=== PATIENT | female | born 1995 | race American Indian/Alaskan Native ===

== ENCOUNTER 2019-12-26 20:46 | Emergency (ER) | payer SELFPAY ==
[2019-12-26] MEDS ORDERED: IBUPROFEN 600 MG TAB PO ONE (22:00)
[2019-12-26] MEDS ORDERED: DIBUCAINE 1% OINT 28 GM PR ONE (22:00)
--- NOTE | 2019-12-26 23:00 | Emergency Department Report ---
ED General Adult HPI - General Chief complaint: Rectal Pain Stated complaint: LAURA/HEMORRHOIDS Source: patient Mode of arrival: Ambulatory Limitations: No Limitations - History of Present Illness Initial comments: Patient is a nulliparous 24-year-old -[place] female with no past medical history who presents to the ED with acute onset persistent severe rectal pain due to hemorrhoids for the last 2 days. Patient states that she has been using [id number] medication with no relief. Patient also complains of rectal pain from the hemorrhoid that has been bleeding intermittently. Patient denies lightheadedness, dizziness, chest pain, shortness of breath, abdominal pain, nausea, vomiting, diarrhea, fever, chills, dysuria, urinary frequency and urgency or change in vision and syncope. MD Complaint: rectal pain; hemorrhoid pain -: Sudden, days(s) (2) Location: buttocks (rectal) Radiation: non-radiation Severity scale (0 -10): 8 Quality: burning, aching, sharp Consistency: constant Improves with: none Worsens with: movement Associated Symptoms: denies other symptoms. denies: confusion, chest pain, cough, diaphoresis, headaches, loss of appetite, malaise, nausea/vomiting, rash, seizure, shortness of breath, syncope, weakness Treatments Prior to Arrival: none - Related Data Previous Rx's Medication Instructions Recorded Last Taken Type Pantoprazole [Protonix TAB] 20 mg PO QDAY #30 tablet. 10/02/15 Unknown Rx Sulfamethoxazole/Trimethoprim 1 each PO BID #14 tablet 10/02/15 Unknown Rx [Bactrim DS TAB] traMADoL [Ultram] 50 mg PO Q6HR PRN #20 tablet 10/02/15 Unknown Rx Dibucaine [Hemorrhoidal-Analgesic] 1 applic TP Q6H PRN #1 tube 12/26/19 Unknown Rx Hydrocortisone [Anusol-Hc 2.5% TOP 1 applic RC Q8H PRN #1 tube 12/26/19 Unknown Rx CREAM] Ibuprofen [Motrin] 600 mg PO Q8H PRN #30 tablet 12/26/19 Unknown Rx Sennosides/Docusate Sodium 1 each PO DAILY #30 tablet 12/26/19 Unknown Rx [Docusate Sodium-Senna Tablet] Allergies Allergy/AdvReac Type Severity Reaction Status Date / Time No Known Allergies Allergy Unverified 07/05/13 13:48 ED Review of Systems ROS: Stated complaint: LAURA/HEMORRHOIDS Other details as noted in HPI Constitutional: denies: chills, fever Eyes: denies: eye pain, eye discharge, vision change ENT: denies: ear pain, throat pain Respiratory: denies: cough, shortness of breath, wheezing Cardiovascular: denies: chest pain, palpitations Endocrine: no symptoms reported Gastrointestinal: other (rectal pain due to hemorrhoids). denies: abdominal pain, nausea, diarrhea Genitourinary: denies: urgency, dysuria, discharge Musculoskeletal: denies: back pain, joint swelling, arthralgia Skin: denies: rash, lesions Neurological: denies: headache, weakness, paresthesias Psychiatric: denies: anxiety, depression Hematological/Lymphatic: denies: easy bleeding, easy bruising ED Past Medical Hx - Past Medical History Previous Medical History?: Yes Additional medical history: Hemorrhoids - Surgical History Past Surgical History?: No - Social History Smoking Status: Never Smoker Substance Use Type: None - Medications Home Medications: Home Medications Medication Instructions Recorded Confirmed Last Taken Type Pantoprazole [Protonix TAB] 20 mg PO QDAY #30 tablet. 10/02/15 Unknown Rx Sulfamethoxazole/Trimethoprim 1 each PO BID #14 tablet 10/02/15 Unknown Rx [Bactrim DS TAB] traMADoL [Ultram] 50 mg PO Q6HR PRN #20 tablet 10/02/15 Unknown Rx Dibucaine [Hemorrhoidal-Analgesic] 1 applic TP Q6H PRN #1 tube 12/26/19 Unknown Rx Hydrocortisone [Anusol-Hc 2.5% TOP 1 applic RC Q8H PRN #1 tube 12/26/19 Unknown Rx CREAM] Ibuprofen [Motrin] 600 mg PO Q8H PRN #30 tablet 12/26/19 Unknown Rx Sennosides/Docusate Sodium 1 each PO DAILY #30 tablet 12/26/19 Unknown Rx [Docusate Sodium-Senna Tablet] ED Physical Exam - General Limitations: No Limitations General appearance: alert, in no apparent distress - Head Head exam: Present: atraumatic, normocephalic, normal inspection - Eye Eye exam: Present: normal appearance, PERRL, EOMI Pupils: Present: normal accommodation - ENT ENT exam: Present: normal exam, normal orophraynx, mucous membranes moist, TM's normal bilaterally, normal external ear exam - Neck Neck exam: Present: normal inspection, full ROM - Respiratory Respiratory exam: Present: normal lung sounds bilaterally. Absent: respiratory distress, wheezes, rales, stridor, chest wall tenderness - Cardiovascular Cardiovascular Exam: Present: regular rate, normal rhythm, normal heart sounds. Absent: systolic murmur, diastolic murmur, rubs, gallop - GI/Abdominal GI/Abdominal exam: Present: soft, normal bowel sounds. 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 Sanchez present during the rectal exam) - Extremities Exam Extremities exam: Present: normal inspection, full ROM, normal capillary refill - Back Exam Back exam: Present: normal inspection, full ROM. Absent: tenderness, muscle spasm, paraspinal tenderness - Neurological Exam Neurological exam: Present: alert, oriented X3, CN II-XII intact, normal gait, reflexes normal - Psychiatric Psychiatric exam: Present: normal affect, normal mood - Skin Skin exam: Present: warm, dry, intact, normal color. Absent: rash ED Course Vital Signs 12/26/19 21:18 Temperature 98.5 F Pulse Rate 61 Respiratory 18 Rate Blood Pressure 103/68 O2 Sat by Pulse 100 Oximetry ED Medical Decision Making - Medical Decision Making This is a nulliparous 24-year-old -[place] female with no past medical history who presents to the ED with acute onset persistent severe rectal pain due to hemorrhoids for the last 2 days. Patient states that she has been using [id number] medication with no relief. Patient also complains of rectal pain from the hemorrhoid that has been bleeding intermittently. In the ED, patient is alert and oriented x3 and is not in distress but appears uncomfortable. Rectal exam shows large quarter sized external tender hemorrhoid with no bleeding. Patient was treated in the ED for pain with ibuprofen and dibucaine 1% ointment. On reevaluation, patient's pain is well controlled medications. Patient will discharge home on medication and advised to follow-up with her primary care physician in 7 to 10 days for reevaluation. Patient was advised to consider surgical removal of the hemorrhoids if they get worse and therefore patient was given a referral to the general surgeon on-call Dr. Kim for further evaluation and follow-up. Patient was advised to return to the ED immediately if symptoms get worse. - Differential Diagnosis Hemorrhoids; Rectal prolapse; Genital herpes; constipation; fissures Critical care attestation.: If time is entered above; I have spent that time in minutes in the direct care of this critically ill patient, excluding procedure time. ED Disposition Clinical Impression: External hemorrhoids, Anal or rectal pain Disposition: TO HOME OR SELFCARE Is pt being admited?: No Does the pt Need Aspirin: No Condition: Stable Instructions: Hemorrhoids (ED), Hemorrhoidectomy (ED) Additional Instructions: Apply the medications to the affected area as advised. Take pain medication by mouth as needed. Increase your fiber intake as well as water intake to improve on your bowel habits. Return to the ED immediately if symptoms get worse. Otherwise follow-up with the general surgeon on-call Dr. Kim as advised. Prescriptions: Hydrocortisone [Anusol-Hc 2.5% TOP CREAM] 1 applic RC Q8H PRN #1 tube PRN Reason: Hemorrhoids Sennosides/Docusate Sodium [Docusate Sodium-Senna Tablet] 1 each PO DAILY #30 tablet Dibucaine [Hemorrhoidal-Analgesic] 1 applic TP Q6H PRN #1 tube PRN Reason: Pain , Severe (7-10) Ibuprofen [Motrin] 600 mg PO Q8H PRN #30 tablet PRN Reason: Pain Referrals: SYLVESTER KIM MD [Staff Physician] - 3-5 Days Time of Disposition: 23:02 Print Language: SALVADOREAN
[2019-12-26 23:11] VITALS: BP 106/72
== END 2019-12-26 23:22 | disposition home or self-care (01) ==
LOC: ED 20:46
DX: K64.4 Residual hemorrhoidal skin tags (principal); Z79.899 Other long term (current) drug therapy
CPT/HCPCS: 99283

== ENCOUNTER 2022-04-14 00:36 | Emergency (ER) | payer SELFPAY ==
--- NOTE | 2022-04-14 01:21 | Emergency Department Report ---
ED General Adult HPI - General Chief complaint: Vaginal Bleeding Stated complaint: VAGINAL BLEEDING/ABD PAIN Time Seen by Provider: 04/14/22 01:15 Source: patient, EMS Mode of arrival: Stretcher Limitations: No Limitations - History of Present Illness Initial comments: 23-year-old female who is approximately 14 weeks presents to the emergency department with vaginal bleeding. Patient reports has been bleeding every day since 1 week ago, however the bleeding has gotten really heavy today. She does go to [facility] in which she did see them today as well had a pelvic exam done and has a scheduled ultrasound on Saturday. States the bleeding has been very heavy, with clots, and pain in her pelvic region. She approximates she is 14 weeks , her last menstrual period was sometime in January and she is due November 2021. Patient approximate she is about 8 weeks , She is a 1, para 0, miscarriage 0, AB 0, she goes to the [facility] for - Related Data Previous Rx's Medication Instructions Recorded Last Taken Type Ibuprofen [Motrin] 600 mg PO Q8H PRN #30 tablet 12/26/19 Unknown Rx Sennosides/Docusate Sodium 1 each PO DAILY #30 tablet 12/26/19 Unknown Rx [Docusate Sodium-Senna Tablet] Acetaminophen/Codeine [Tylenol 1 tab PO Q6H PRN #12 tab 04/14/22 Unknown Rx /Codeine # 3 tab] Allergies Allergy/AdvReac Type Severity Reaction Status Date / Time No Known Allergies Allergy Verified 01/11/20 16:00 ED Review of Systems ROS: Stated complaint: VAGINAL BLEEDING/ABD PAIN Other details as noted in HPI Constitutional: see HPI ENT: as per HPI Respiratory: see HPI Cardiovascular: denies: chest pain, palpitations Endocrine: denies: excessive sweating, intolerance to cold, intolerance to heat Gastrointestinal: as per HPI. denies: abdominal pain Genitourinary: as per HPI, hematuria, discharge Musculoskeletal: as per HPI Neurological: denies: headache Psychiatric: denies: auditory hallucinations, visual hallucinations, homicidal thoughts, suicidal thoughts Hematological/Lymphatic: denies: easy bleeding, easy bruising ED Past Medical Hx - Past Medical History Previous Medical History?: Yes Hx Hypertension: No Hx HIV: No Additional medical history: Hemorrhoids - Surgical History Past Surgical History?: No - Social History Smoking Status: Never Smoker Substance Use Type: None - Medications Home Medications: Home Medications Medication Instructions Recorded Confirmed Last Taken Type Ibuprofen [Motrin] 600 mg PO Q8H PRN #30 tablet 12/26/19 01/11/20 Unknown Rx Sennosides/Docusate Sodium 1 each PO DAILY #30 tablet 12/26/19 01/11/20 Unknown Rx [Docusate Sodium-Senna Tablet] Acetaminophen/Codeine [Tylenol 1 tab PO Q6H PRN #12 tab 04/14/22 Unknown Rx /Codeine # 3 tab] ED Physical Exam - General Limitations: No Limitations General appearance: alert, in no apparent distress - Head Head exam: Present: atraumatic - Eye Eye exam: Present: normal appearance Pupils: Present: normal accommodation - ENT ENT exam: Present: normal exam, normal orophraynx - Neck Neck exam: Present: normal inspection - Respiratory Respiratory exam: Present: normal lung sounds bilaterally. Absent: respiratory distress - Cardiovascular Cardiovascular Exam: Present: regular rate, normal rhythm - GI/Abdominal GI/Abdominal exam: Present: soft. Absent: distended - Speculum exam: Present: other (Patient unable to tolerate speculum exam due to pain). Absent: normal speculum exam - Extremities Exam Extremities exam: Present: normal inspection, full ROM - Back Exam Back exam: Present: normal inspection, full ROM. Absent: tenderness - Neurological Exam Neurological exam: Present: alert, oriented X3, CN II-XII intact, normal gait. Absent: motor sensory deficit - Psychiatric Psychiatric exam: Present: normal affect, normal mood - Skin Skin exam: Present: warm, dry, intact, normal color ED Course Vital Signs 04/14/22 04/14/22 00:37 01:50 Temperature 98 F Pulse Rate 88 61 Respiratory 18 12 Rate Blood Pressure 158/78 Blood Pressure 98/56 [Left] O2 Sat by Pulse 99 100 Oximetry ED Medical Decision Making - Lab Data Result diagrams: 04/14/22 01:10 - Radiology Data Radiology results: report reviewed - Medical Decision Making 23-year-old female who is approximately 14 weeks patient is B+, Patient remained stable nontoxic-appearing, afebrile, ambulating steadily without assistance. Gone over ED findings with patient as well as plan for fol low-up. Also discussed return precautions with patient, all questions and concerns addressed. Patient is stable to be discharged follow-up outpatient. Audio voice dictation device used, hence the chart might contain some dictation errors, mispronunciations, wrong spelling and wrong verbiage. presents to the emergency department with vaginal bleeding. Patient reports has been bleeding every day since 1 week ago, however the bleeding has gotten really heavy today. She does go to [facility] in which she did see them today as well had a pelvic exam done and has a scheduled ultrasound on Saturday. States the bleeding has been very heavy, with clots, and pain in her pelvic region. She approximates she is 14 weeks , her last menstrual period was sometime in January and she is due November 2021. Patient approximate she is about 8 weeks , 1. Endometrial thickening without gestational sac or other sonographic evidence for an intrauterine gestation. Correlation with serum quantitative serum beta-hCG levels and short- term OB ultrasound follow-up recommended. Based on history and exam as well as ultrasound and lab findings, most likely patient is miscarrying. All have miscarried. Discharge home with pain management, rest, pelvic exam, discharge and follow-up with her OB on Saturday for repeat ultrasound and quant. Patient remained stable nontoxic-appearing, afebrile, ambulating steadily without assistance. Gone over ED findings with patient as well as plan for follow-up. Also discussed return precautions with patient, all questions and concerns addressed. Patient is stable to be discharged follow-up outpatient. Audio voice dictation device used, hence the chart might contain some dictation errors, mispronunciations, wrong spelling and wrong verbiage. Critical care attestation.: If time is entered above; I have spent that time in minutes in the direct care of this critically ill patient, excluding procedure time. ED Disposition Clinical Impression: Miscarriage, threatened, early , Vagina bleeding Disposition: HOME / SELF CARE / HOMELESS Is pt being admited?: No Does the pt Need Aspirin: No Condition: Stable Instructions: Miscarriage Referrals: KATHY CINTRON MD [Primary Care Provider] - 3-5 Days [facility] [Provider Group] - 3-5 Days Forms: Work/School Release Form(ED)
[2022-04-14] MEDS ORDERED: SODIUM CHLORIDE 0.9% 1000 ML 1,000 ML IV ONE (01:22)
[2022-04-14] MEDS ORDERED: ONDANSETRON 4 MG/2 ML INJ IV ONE (01:22)
[2022-04-14] MEDS ORDERED: ACETAMINOPHEN W/CODEINE 300-30 MG TAB PO ONE (01:23)
[2022-04-14 01:29] LABS: Basophils % (Auto) 0.3 % (0.0-1.8); Eosinophils % (Auto) 0.4 % (0.0-4.3); Hematocrit 41.2 % (30.3-42.9); Lymphocytes # (Auto) 1.1 K/mm3 (1.2-5.4); Lymphocytes % (Auto) 10.6 % (13.4-35.0); Mean Corpuscular HGB Conc 32 % (30-34); Mean Corpuscular Volume 87 fl (79-97); Monocytes # (Auto) 0.6 K/mm3 (0.0-0.8); Monocytes % (Auto) 5.7 % (0.0-7.3); Platelet Count 266 K/mm3 (140-440); Red Blood Count 4.72 M/mm3 (3.65-5.03); Red Cell Distribution Width 13.9 % (13.2-15.2)
--- NOTE | 2022-04-14 05:07 | Ultrasound Report ---
ULTRASOUND OBSTETRIC INDICATION / CLINICAL INFORMATION: 14 weeks bleeding, pelvic PAIN. - Clinical Gestational Age (GA) in weeks, days: 8 weeks 5 days TECHNIQUE: Transabdominal. COMPARISON: None available. FINDINGS: No gestational sac or other evidence for an intrauterine gestation is identified. Endometrial thicken ing may be physiologic or secondary to a decidual reaction measuring 13 mm. UTERUS: No significant abnormality. ADNEXA: No significant abnormality. FREE FLUID: None. ADDITIONAL FINDINGS: None. IMPRESSION: 1. Endometrial thickening without gestational sac or other sonographic evidence for an intrauterine g estation. Correlation with serum quantitative serum beta-hCG levels and short-term OB ultrasound foll ow-up recommended. Signer Name: Clyde Su MD Signed: 04/14/2022 5:02 AM Workstation Name: [employer]
[2022-04-14 06:36] VITALS: BP 116/63
== END 2022-04-14 06:36 | disposition home or self-care (01) ==
LOC: ED 00:36
DX: O20.0 Threatened abortion (principal); Z3A.14 14 weeks gestation of pregnancy
CPT/HCPCS: 36415; 76801; 84702; 85025; 86900; 86901; 96361; 96374; 99284; J2405